=== PATIENT | male | born 1985 | race Caucasian/White ===

== ENCOUNTER 2017-06-08 16:24 | Emergency (ER) | payer OTHER ==
[~2017-06-08] VITALS: Ht 182.8 cm; Wt 54.4 kg
[~2017-06-08 16:24] MED LIST: CILOXAN 5 ML5 M1 OP; MEDROL DOSEPAK4 MG PO; MOTRIN800 MG PO; NO DAILY MEDS; NORFLEX100 MG PO; PERCOCET 325 MG1 TA2 PO; TRAMADOL HCL50 MG PO; ULTRAM50 MG PO; VICODIN ES 7501 TAB PO
[2017-06-08] MEDS ORDERED: NAPROSYN500 MG PO (17:28)
== END 2017-06-08 17:44 | disposition home or self-care (01) ==
LOC: ED 16:24
DX: S60.221A Contusion of right hand, initial encounter (principal); R03.0 Elevated blood-pressure reading, without diagnosis of hypertension; X58.XXXA Exposure to other specified factors, initial encounter; Y93.89 Activity, other specified; Y92.89 Other specified places as the place of occurrence of the external cause; Y99.8 Other external cause status

== ENCOUNTER 2019-09-03 02:08 | Emergency (ER) | payer OTHER ==
[~2019-09-03] VITALS: Ht 185.4 cm; Wt 99.8 kg
[~2019-09-03 02:08] MED LIST changes: +NAPROSYN500 MG PO
[2019-09-03] MEDS ORDERED: ULTRAM50 MG PO (03:46)
--- NOTE | 2019-09-03 04:04 | NUR ---
PATIENT INSTRUCTED ON INCENTIVE SPIROMETRY.
== END 2019-09-03 03:50 | disposition home or self-care (01) ==
LOC: ED 02:08
DX: S22.42XA Multiple fractures of ribs, left side, initial encounter for closed fracture (principal); F17.200 Nicotine dependence, unspecified, uncomplicated; W50.0XXA Accidental hit or strike by another person, initial encounter; Y93.89 Activity, other specified; Y92.89 Other specified places as the place of occurrence of the external cause; Y99.8 Other external cause status

== ENCOUNTER 2020-01-13 18:03 | Emergency (ER) | payer OTHER ==
[~2020-01-13] VITALS: Ht 182.8 cm; Wt 99.8 kg
[2020-01-13] MEDS ORDERED: SEPTDS PO (19:26)
== END 2020-01-13 20:00 | disposition home or self-care (01) ==
LOC: ED 18:03
DX: L02.214 Cutaneous abscess of groin (principal)

== ENCOUNTER 2020-02-23 20:20 | Inpatient (IN) | payer OTHER ==
[~2020-02-23] VITALS: Ht 182.9 cm; Wt 95.5 kg
[~2020-02-23 20:20] MED LIST changes: +SEPTDS PO
[2020-02-23 20:25] VITALS: BP 142/89
[2020-02-23 21:43] LABS: BASO # 0.1 10*3/uL (0.0-0.1); BASO % 0.7 % (0.0-1.0); EOS # 0.4 10*3/uL (0.0-0.4); EOS % 3.2 % (1.0-4.0); HEMATOCRIT 44.9 % (42.0-52.0); LYMPH # 2.9 10*3/uL (1.3-4.4); LYMPH % 21.7 % (27.0-41.0); MEAN CELL VOLUME 90.3 fl (80.0-94.0); MEAN CORPUSCULAR HGB 30.6 pg (27.0-31.0); MEAN CORPUSCULAR HGB CONC 33.9 g/dl (33.0-37.0); MEAN PLATELET VOLUME 10.6 fl (9.6-12.3); MONO # 1.1 10*3/uL (0.1-1.0); MONO % 8.5 % (3.0-9.0); NEUT # 8.7 10*3/uL (2.3-7.9); NEUT % 65.7 % (47.0-73.0); PLATELET COUNT AUTOMATED 282 10*3/uL (130-400); RED BLOOD COUNT 4.97 10*6/uL (4.50-5.90); RED CELL DISTRI WIDTH 11.9 % (0-14.5); WHITE BLOOD COUNT 13.2 10*3/uL (4.8-10.8)
[2020-02-23 21:59] LABS: ALBUMIN 3.8 gm/dl (3.1-4.5); ALKALINE PHOSPHATASE 110 U/L (45-117); BUN 14 mg/dl (7-24); CHLORIDE 106 mmol/L (98-107); CREATININE 1.04 mg/dL (0.70-1.30); POTASSIUM 3.6 mmol/L (3.5-5.1); SGOT/AST 17 IU/L (3-35); SGPT/ALT 26 U/L (12-78); SODIUM 139 mmol/L (136-145); TOTAL PROTEIN 7.4 gm/dL (6.4-8.2)
[2020-02-23 22:30] VITALS: BP 116/78
--- NOTE | 2020-02-23 23:02 | NUR ---
DR JUÁREZ AT BEDSIDE. EKG PERFORMED. PT TOLERATED WELL WITH SOME MILD DISCOMFORT AT ABSESS SITE.
--- NOTE | 2020-02-23 23:36 | NUR ---
AWAITING CT PRIOIR TO TRANSPORTING UPSTAIRS
--- NOTE | 2020-02-23 23:37 | NUR ---
SPOKE WITH CATHY ADMITTING NURSE TO UPDATE.
--- NOTE | 2020-02-23 23:59 | NUR ---
RETURNED FROM CT
[2020-02-24 00:16] VITALS: BP 110/66
[2020-02-24 00:35] VITALS: BP 141/96
--- NOTE | 2020-02-24 00:35 | NUR ---
A 34, admitted to , under the services of JAYLEN Painting DO with a diagnosis of SEPSIS, ABSCELL OR CELLULITIS OF GROIN. Chief complaint is REDDENED, PAINFUL LEFT GROIN AREA. Patient arrived via stretcher from ER. Monitor applied. Initial assessment completed. Vital signs taken and recorded. JAYLEN PAINTING DO notified of admission to the unit. Orders received. See assessment for past medical history, medications and allergies. Patient and/or family oriented to unit. [facility] visitation policy reviewed. Clothing/patient valuable form completed. CATHY SWENSON
--- NOTE | 2020-02-24 01:24 | NUR ---
[facility] GIVEN PER PT REQUEST FOR PAIN R/T ABSCESS
--- NOTE | 2020-02-24 02:21 | NUR ---
CRITICAL CT RESULTS TAKEN FROM DR MOORE. HALIE ALBERTO NOTIFIED
--- NOTE | 2020-02-24 02:33 | NUR ---
DR CRANDALL NOTIFIED OF CRITICAL CT RESULTS. STATES OK TO CONSULT SURGERY.
--- NOTE | 2020-02-24 06:16 | NUR ---
RAMOS RODRIGUEZ [id number] Please refer to the physician's history and physical for past medical history, comorbid conditions, and allergies. Diagnosis: SEPSIS ABSCESS OR CELLULITIS OF GROIN Maxwell Score: 23,LOW OR NO RISK WOUND DESCRIPTIONS: Wound Number: 1 Location of the wound: left groin Type of wound: abscess Size: 2.2vm x 1.0cm x <0.1cm Tunneling: none Undermining: none Sinus Tract: none Presence of Exudate: none Amount: None Color: Red Odor: None Periwound Skin Appearance: erythema measuring 21.0cm x 20.5cm Wound edges: approximated Pain (associated with wound): tender at time of assessment How does patient state this happened? pt states that it started sunday and was draining slighlty at work yesterday Surface the patient is resting on: Isoflex SKIN PREVENTION RECOMMENDATION: 1. Pressure redistribution support surface as appropriate 2. Elevate heels 3. Remove boots/TEDS every shift and reapply 4. Head of bed 30 degrees as tolerated 5. Assess nutrition and hydration 6. Manage moisture 7. Avoid the use of containment devices while in bed 8. Use absorptive products on surfaces limit layers of linens on bed 9. Turn and reposition every 1-2 hours in bed and every 1 hour in chair as tolerated 10. Weight shifts every 15 minutes while up in chair 11. Offloading with pillows or device to keep heels elevated off bed 12. Monitor skin at least every shift 13. Inspect under medical devices twice a day WOUND TREATMENT RECOMMENDATIONS: Dr. Prabhakar is already on consult may need I&D Apply warm compress to left groin qid for 15 mintues or as tolerated by the patient If left groin begins to drain cleanse with nss and apply dsd daily and prn for soiling.
--- NOTE | 2020-02-24 06:30 | NUR ---
DR PETERSON NOTIFIED OF NEW CONSULT, STATES HE WILL SEE HIM TODAY
[2020-02-24 07:38] LABS: BASO % 0.4 % (0.0-1.0); EOS # 0.3 10*3/uL (0.0-0.4); EOS % 3.6 % (1.0-4.0); HEMATOCRIT 42.3 % (42.0-52.0); LYMPH # 3.1 10*3/uL (1.3-4.4); LYMPH % 32.4 % (27.0-41.0); MEAN CELL VOLUME 92.4 fl (80.0-94.0); MEAN CORPUSCULAR HGB 30.1 pg (27.0-31.0); MEAN CORPUSCULAR HGB CONC 32.6 g/dl (33.0-37.0); MEAN PLATELET VOLUME 10.7 fl (9.6-12.3); MONO # 0.9 10*3/uL (0.1-1.0); MONO % 9.4 % (3.0-9.0); NEUT # 5.1 10*3/uL (2.3-7.9); PLATELET COUNT AUTOMATED 244 10*3/uL (130-400); RED BLOOD COUNT 4.58 10*6/uL (4.50-5.90); WHITE BLOOD COUNT 9.4 10*3/uL (4.8-10.8)
--- NOTE | 2020-02-24 07:39 | NUR ---
Dr. Barkley notified of wound care recommendations.
[2020-02-24 08:00] VITALS: BP 121/78
[2020-02-24 08:05] LABS: ALBUMIN 3.2 gm/dl (3.1-4.5); ALKALINE PHOSPHATASE 93 U/L (45-117); BUN 11 mg/dl (7-24); CHLORIDE 107 mmol/L (98-107); CHOLESTEROL 151 mg/dL (<200); CREATININE 0.96 mg/dL (0.70-1.30); FREE T4 0.85 ng/dl (0.76-1.46); HDL CHOLESTEROL 46 mg/dl (40-60); LDL CHOLESTEROL 84 mg/dL (9-159); POTASSIUM 3.7 mmol/L (3.5-5.1); SGOT/AST 12 IU/L (3-35); SGPT/ALT 23 U/L (12-78); SODIUM 140 mmol/L (136-145); TOTAL PROTEIN 6.4 gm/dL (6.4-8.2); TRIGLYCERIDES 106 mg/dl (<150); VLDL CHOLESTEROL 21 mg/dL (6-40)
[2020-02-24 08:11] LABS: VITAMIN D, 25-HYDROXY 15.1 ng/mL (30-100)
--- NOTE | 2020-02-24 10:05 | NUR ---
Shift chart check completed.
--- NOTE | 2020-02-24 11:38 | NUR ---
Nutrition Support Note: Pt diagnosed with sepsis and celluitis of groin. Pt is 6' and 210#. Albumin of 3.2. Appetite is good with 100% intakes noted. Continue encouraging 100% intake of meals. Will begin providing a night snack. Will follow. Beverly EDWARDS Director Digital Advertising
--- NOTE | 2020-02-24 11:44 | NUR ---
Envelope Adjuster in to talk to patient. Patient states lives at HOME with FRIENDS. There are FEW steps in the home. Physician: NONE AT THIS TIME [facility] [place] [facility]: NONE Patient's level of ADLs: INDEPENDENT Patient has working utilities: YES DME: NONE Follow-up physician's appointment after d/c: WILL BE MADE BY HOSPITALIST NURSE DIRECTOR ON DISCHARGE Does patient want to access PORTAL?: NO Discharge plan PT LIVES AT HOME WITH FRIENDS AND IS INDEPENDENT IN HIS CARE. DENIES HE WILL HAVE ANY NEEDS ON DISCHARGE. PLAN IS TO RETURN HOME WHEN MEDICALLY STABLE. STATES HE WILL HAVE A RIDE HOME. WILL CONTINUE TO FOLLOW.. KAYDEN RG
[2020-02-24 12:00] VITALS: BP 128/68
[2020-02-24 16:00] VITALS: BP 110/66
[2020-02-24 20:00] VITALS: BP 114/79
--- NOTE | 2020-02-24 20:10 | NUR ---
[id number] RESTING IN BED. PT. VOICES NO C/O AT THIS TIME. CALL LIGHT WITHIN REACH.
--- NOTE | 2020-02-24 23:46 | NUR ---
MEDICATED WITH [facility] FOR C/O LEFT GROIN PAIN.
[2020-02-25] VITALS: BP 113/80
--- NOTE | 2020-02-25 00:15 | NUR ---
[facility]
--- NOTE | 2020-02-25 06:00 | NUR ---
UP THIS AM TO TAKE A SHOWER.
[2020-02-25 08:00] VITALS: BP 119/84
--- NOTE | 2020-02-25 08:40 | NUR ---
PT AWAKE, ALERT, ORIENTED X3. ABSCESS NOTED TO LEFT GROIN. SLIGHT DRAINAGE NOTED. OPEN TO AIR AT THIS TIME. HARD AREA NOTED BENEATH ABSCESS. DENIES PAIN AT THIS TIME. ASSESSMENT OTHERWISE NEGATIVE. CALL LIGHT IS WITHIN REACH. IV ANTIBIOTIC INFUSING PER ORDER.
--- NOTE | 2020-02-25 10:52 | NUR ---
PATIENT BEING TAKEN OFF FLOOR FOR SURGERY AT THIS TIME.
[2020-02-25 11:22] VITALS: BP 113/71
[2020-02-25 12:02] VITALS: BP 111/68
--- NOTE | 2020-02-25 12:13 | NUR ---
PT CONTINUES TO STATES HE HOPES TO GO HOME WITH NO NEW NEEDS. WILL CONTINUE TO FOLLOW.
[2020-02-25 12:17] VITALS: BP 112/69
[2020-02-25 12:32] VITALS: BP 137/62
[2020-02-25] MEDS ORDERED: DOXYCYCLINE100 M3 PO (12:56)
--- NOTE | 2020-02-25 13:34 | NUR ---
TALKED WITH PT ABOUT HOME HEALTH, PT STATES THEY DOCTOR TOLD ME TO PULL PACKING OUT IN TWO DAYS AND PUT A DRY DRESSING ON IT. PT ALSO STATES HE IS GOING BACK TO WORK TOMORROW. REFUSES HOME HEALTH.
--- NOTE | 2020-02-25 13:40 | NUR ---
Discharge instructions reviewed with patient/family. Patient receptive and verbalizes understanding. Follow-up care arranged. Written instructions given to patient/family. PATIENT AWARE THAT HE NEEDS TO HYPERBARIC NURSE PRESCRIPTIONS. CALLED TO CLARIFY DRESSING ORDERS. PT AWARE TO REMOVE PACKING IN 72 HRS. TOLD PATIENT THAT MAINTENANCE REPRESENTATIVE WILL BE CONTACTING HIM REGARDING HOME HEALTH CARE. PATIENT MABULATORY OFF FLOOR. HEPLOCK DISCONTINUED. UNABLE TO TAKE WOUND PHOTO DUE TO FRESH PACKING AND DRESSING IN PLACE. PREET CHILDS
== END 2020-02-25 13:40 | disposition home or self-care (01) | DRG 854 ==
LOC: ED 20:20 → EDHOLD 22:47 → 5E 22:47
PROVIDERS: Internal Medicine; Nurse Practitioner Family; ADMIT Internal Medicine
PROC: 0Y960ZZ Drainage of Left Inguinal Region, Open Approach (ICD-10-PCS; principal; 2020-02-25)
DX: A41.9 Sepsis, unspecified organism (principal); L03.314 Cellulitis of groin; L02.214 Cutaneous abscess of groin; F17.210 Nicotine dependence, cigarettes, uncomplicated; F32.9 Major depressive disorder, single episode, unspecified; Z71.6 Tobacco abuse counseling; Z90.49 Acquired absence of other specified parts of digestive tract; Z98.52 Vasectomy status

== ENCOUNTER 2021-03-23 00:15 | Emergency (ER) | payer OTHER ==
[~2021-03-23] VITALS: Ht 182.8 cm; Wt 95.3 kg
[~2021-03-23 00:15] MED LIST changes: +DOXYCYCLINE100 M3 PO
[2021-03-23] MEDS ORDERED: BACITRACIN28.4 GM T ×2 (01:58)
[2021-03-23] MEDS ORDERED: CEPHALEXIN500 M1 PO ×2 (01:58)
[2021-03-23] MEDS ORDERED: HYDROCODON-ACE1 EACH PO (02:06)
[2021-03-23] MEDS ORDERED: HYDROCODONE-AC1 EAC1 PO ×3 (13:07→16:26)
== END 2021-03-23 02:57 | disposition home or self-care (01) ==
LOC: ED 00:15
DX: S92.322A Displaced fracture of second metatarsal bone, left foot, initial encounter for closed fracture (principal); S61.411A Laceration without foreign body of right hand, initial encounter; S61.412A Laceration without foreign body of left hand, initial encounter; F17.210 Nicotine dependence, cigarettes, uncomplicated; Z79.2 Long term (current) use of antibiotics; Z90.49 Acquired absence of other specified parts of digestive tract; W13.4XXA Fall from, out of or through window, initial encounter; Y93.89 Activity, other specified; Y92.89 Other specified places as the place of occurrence of the external cause; Y99.8 Other external cause status

== ENCOUNTER → 2021-03-30 | Outpatient (CLI) | payer OTHER ==
[~2021-03-30] MED LIST changes: +BACITRACIN28.4 GM T; +CEPHALEXIN500 M1 PO; +HYDROCODON-ACE1 EACH PO; +HYDROCODONE-AC1 EAC1 PO
== END | disposition home or self-care (01) ==
LOC: CT 10:00
PROVIDERS: ATTEND Orthopaedic Surgery
DX: S92.322D Displaced fracture of second metatarsal bone, left foot, subsequent encounter for fracture with routine healing (principal); X58.XXXD Exposure to other specified factors, subsequent encounter

== ENCOUNTER → 2021-04-04 | Outpatient (CLI) | payer OTHER | END | disposition home or self-care (01) | LOC: US 09:30 | PROVIDERS: ATTEND Orthopaedic Surgery | DX: I82.402 Acute embolism and thrombosis of unspecified deep veins of left lower extremity (principal) ==

== ENCOUNTER → 2021-04-07 | Day surgery (SDC) | payer OTHER ==
[~2021-04-07] VITALS: Ht 182.8 cm; Wt 99.8 kg
[2021-04-07 08:06] VITALS: BP 116/85
[2021-04-07 09:30] VITALS: BP 103/64
[2021-04-07 09:45] VITALS: BP 113/79
[2021-04-07 10:00] VITALS: BP 105/62
== END | disposition home or self-care (01) ==
LOC: SDC 04-04 11:00
PROVIDERS: ATTEND Orthopaedic Surgery
DX: S93.492A Sprain of other ligament of left ankle, initial encounter (principal); S92.212A Displaced fracture of cuboid bone of left foot, initial encounter for closed fracture; S92.323A Displaced fracture of second metatarsal bone, unspecified foot, initial encounter for closed fracture; F17.210 Nicotine dependence, cigarettes, uncomplicated; F32.9 Major depressive disorder, single episode, unspecified; W17.89XA Other fall from one level to another, initial encounter; Z20.822 Contact with and (suspected) exposure to COVID-19; Y93.89 Activity, other specified; Y92.89 Other specified places as the place of occurrence of the external cause; Y99.8 Other external cause status; Z79.899 Other long term (current) drug therapy

== ENCOUNTER → 2021-04-20 | Outpatient (CLI) | payer OTHER | END | disposition home or self-care (01) | LOC: ORTHO 00:38 | PROVIDERS: ATTEND Orthopaedic Surgery | DX: S92.212D Displaced fracture of cuboid bone of left foot, subsequent encounter for fracture with routine healing (principal); S93.325D Dislocation of tarsometatarsal joint of left foot, subsequent encounter; X58.XXXD Exposure to other specified factors, subsequent encounter ==

== ENCOUNTER → 2021-04-29 | Outpatient (CLI) | payer OTHER | END | disposition home or self-care (01) | LOC: ORTHO 00:25 | PROVIDERS: ATTEND Orthopaedic Surgery | DX: S93.325D Dislocation of tarsometatarsal joint of left foot, subsequent encounter (principal); S92.322D Displaced fracture of second metatarsal bone, left foot, subsequent encounter for fracture with routine healing; S92.212D Displaced fracture of cuboid bone of left foot, subsequent encounter for fracture with routine healing; X58.XXXD Exposure to other specified factors, subsequent encounter ==

== ENCOUNTER → 2021-05-16 | Outpatient (CLI) | payer OTHER | END | disposition home or self-care (01) | LOC: ORTHO 00:54 | PROVIDERS: ATTEND Orthopaedic Surgery | DX: S93.325D Dislocation of tarsometatarsal joint of left foot, subsequent encounter (principal); S92.322D Displaced fracture of second metatarsal bone, left foot, subsequent encounter for fracture with routine healing; S92.212D Displaced fracture of cuboid bone of left foot, subsequent encounter for fracture with routine healing; M81.8 Other osteoporosis without current pathological fracture; X58.XXXD Exposure to other specified factors, subsequent encounter ==

== ENCOUNTER → 2021-05-17 | Day surgery (SDC) | payer OTHER ==
[2021-05-16 14:29] VITALS: BP 114/67
[~2021-05-17] VITALS: Ht 182.8 cm; Wt 94.3 kg
[2021-05-17 07:05] VITALS: BP 123/93
[2021-05-17 08:38] VITALS: BP 111/72
[2021-05-17 08:53] VITALS: BP 121/75
[2021-05-17 09:08] VITALS: BP 121/89
== END | disposition home or self-care (01) ==
LOC: SDC 05-16 13:15
PROVIDERS: ATTEND Orthopaedic Surgery
DX: Z47.2 Encounter for removal of internal fixation device (principal); S92.322A Displaced fracture of second metatarsal bone, left foot, initial encounter for closed fracture; F17.210 Nicotine dependence, cigarettes, uncomplicated; Z79.82 Long term (current) use of aspirin; Z79.899 Other long term (current) drug therapy; X58.XXXA Exposure to other specified factors, initial encounter; Y93.89 Activity, other specified; Y92.89 Other specified places as the place of occurrence of the external cause; Y99.8 Other external cause status

== ENCOUNTER → 2021-05-30 | Outpatient (CLI) | payer OTHER | END | disposition home or self-care (01) | LOC: ORTHO 00:34 | PROVIDERS: ATTEND Orthopaedic Surgery | DX: S92.212D Displaced fracture of cuboid bone of left foot, subsequent encounter for fracture with routine healing (principal); X58.XXXD Exposure to other specified factors, subsequent encounter ==

== ENCOUNTER → 2021-06-17 | Outpatient (CLI) | payer OTHER | END | disposition home or self-care (01) | LOC: ORTHO 00:20 | PROVIDERS: ATTEND Orthopaedic Surgery | DX: M85.872 Other specified disorders of bone density and structure, left ankle and foot (principal); S93.325D Dislocation of tarsometatarsal joint of left foot, subsequent encounter; S92.322D Displaced fracture of second metatarsal bone, left foot, subsequent encounter for fracture with routine healing; S92.212D Displaced fracture of cuboid bone of left foot, subsequent encounter for fracture with routine healing; X58.XXXD Exposure to other specified factors, subsequent encounter ==

== ENCOUNTER 2021-06-30 11:49 | Emergency (ER) | payer OTHER ==
[~2021-06-30] VITALS: Ht 180.3 cm; Wt 99.8 kg
[2021-06-30 12:21] LABS: BASO # 0.1 10*3/uL (0.0-0.1); BASO % 0.5 % (0.0-1.0); EOS # 0.1 10*3/uL (0.0-0.4); EOS % 1.1 % (1.0-4.0); HEMATOCRIT 45.9 % (42.0-52.0); LYMPH # 2.3 10*3/uL (1.3-4.4); LYMPH % 18.9 % (27.0-41.0); MEAN CELL VOLUME 87.3 fl (80.0-94.0); MEAN CORPUSCULAR HGB 30.2 pg (27.0-31.0); MEAN CORPUSCULAR HGB CONC 34.6 g/dl (33.0-37.0); MONO % 8.3 % (3.0-9.0); NEUT # 8.8 10*3/uL (2.3-7.9); NEUT % 70.8 % (47.0-73.0); PLATELET COUNT AUTOMATED 281 10*3/uL (130-400); RED BLOOD COUNT 5.26 10*6/uL (4.50-5.90); RED CELL DISTRI WIDTH 12.6 % (0-14.5); WHITE BLOOD COUNT 12.4 10*3/uL (4.8-10.8)
[2021-06-30 12:34] LABS: ALBUMIN 4.1 gm/dl (3.1-4.5); BUN 6 mg/dl (7-24); CHLORIDE 103 mmol/L (98-107); CREATININE 0.96 mg/dL (0.70-1.30); POTASSIUM 4.4 mmol/L (3.5-5.1); SGOT/AST 14 IU/L (3-35); SGPT/ALT 32 U/L (12-78); SODIUM 137 mmol/L (136-145); TOTAL PROTEIN 7.7 gm/dL (6.4-8.2)
[2021-06-30 12:37] LABS: ALKALINE PHOSPHATASE 108 U/L (45-117); ETHYL ALCOHOL < 3.0 mg/dl (<3); TROPONIN I < 0.015 ng/ml (<0.045)
[2021-06-30 12:50] LABS: URINE AMPHETAMINES > 1000 (1000ng/ml); URINE BARBITURATES < 200 (200ng/ml); URINE BENZODIAZEPINES < 200 (200ng/ml); URINE CANNABINOIDS (THC) < 50 (50ng/ml); URINE COCAINE < 300 (300ng/ml); URINE METHADONE < 300 (300ng/ml); URINE OPIATES < 300 (300ng/ml)
[2021-06-30 12:51] LABS: URINE PHENCYCLIDINE < 25 (25ng/ml)
== END 2021-06-30 18:35 | disposition home or self-care (01) ==
LOC: ED 11:49
PROVIDERS: Physician Assistant
DX: R41.0 Disorientation, unspecified (principal); T43.625A Adverse effect of amphetamines, initial encounter; Y92.89 Other specified places as the place of occurrence of the external cause